=== PATIENT | male | born 1940 | race Caucasian/White ===

== ENCOUNTER 2019-06-30 11:54 | Inpatient (IN) | payer OTHER ==
[~2019-06-30] VITALS: Ht 165.1 cm; Wt 74.8 kg
[2019-06-30 12:02] VITALS: Ht 165.1 cm; Wt 74.8 kg
--- NOTE | 2019-06-30 12:13 | NUR ---
PT TO [facility].
--- NOTE | 2019-06-30 12:39 | NUR ---
LAB AT BEDSIDE FOR BLOOD DRAW
[2019-06-30 12:51] LABS: BASOPHIL % 0.5 % (0-2); PLATELET COUNT 258 x10^3mcL (130-400); RED CELL DISTRIBUTION WIDTH 16.7 % (11.5-14.5)
--- NOTE | 2019-06-30 12:51 | NUR ---
PT BIB FAMILY C/C VEGETABLE TESTER ATE RAT POISON PER DTR HE THOUGHT IT WAS CHOCOLATE PT DENIES SYMPTOMS SAW BY DR ULLOA
[2019-06-30 13:36] LABS: CARBON DIOXIDE 30.2 mmol/L (21-32); CHLORIDE SERUM 103 mmol/L (98-107); CREATININE SERUM 0.7 mg/dL (0.7-1.3); GLUCOSE SERUM 316 mg/dL (74-106); POTASSIUM SERUM 4.6 mmol/L (3.5-5.1); SODIUM SERUM 140 mmol/L (136-145)
[2019-06-30 13:40] LABS: ALBUMIN 3.6 g/dL (3.4-5.0); ALKALINE PHOSPHATASE 104 U/L (46-116); ALT/SGPT 24 U/L (16-63); AST/SGOT 14 U/L (15-37); BILIRUBIN TOTAL 0.5 mg/dL (0.20-1.00); TOTAL PROTEIN, SERUM 7.4 g/dL (6.4-8.2)
--- NOTE | 2019-06-30 14:10 | NUR ---
PT DENIES PAIN OR DISCOMFORT FAMILY AT BEDSIDE
[2019-06-30 15:04] LABS: microscopic required? NO
[2019-06-30 15:18] LABS: UA SPECIFIC GRAVITY 1.015 (1.005-1.035); urine erythrocyte NEGATIVE (NEGATIVE)
--- NOTE | 2019-06-30 15:18 | NUR ---
Samuel ULLOA AT BEDSIDE TO GO OVER PLAN OF CARE
--- NOTE | 2019-06-30 15:25 | NUR ---
PLEASE ENTER FULL NAMES OF MANUFACTURING FINANCE MANAGER/RN Patient data collected by (MANUFACTURING FINANCE MANAGER): Davida NICOLE Assessment reviewed and completed by (RN): KATINA RN
--- NOTE | 2019-06-30 16:33 | NUR ---
PT WATCHING TV NO DISCOMFORT OBSERVED
--- NOTE | 2019-06-30 17:17 | NUR ---
PT DENIES DISCOMFORT
--- NOTE | 2019-06-30 18:00 | NUR ---
PT ADMIT TO TELE ROOM 253A GAVE REPORT TO MIRNA
[2019-06-30 18:05] LABS: PHOSPHOROUS 2.9 mg/dL (2.5-4.9)
[2019-06-30 18:08] LABS: CHOLESTEROL/HDL RATIO 4.5
--- NOTE | 2019-06-30 18:39 | NUR ---
ARRIVED FROM ED AT 1826. AAO TIMES 4. [place] SPEAKING ONLY. TELE # 1 SR. VS'S STABLE. COOPERATIVE.
[2019-06-30] MEDS ORDERED: FORTAMET500 M1 PO (18:41)
[2019-06-30] MEDS ORDERED: ZESTRIL5 MG PO (18:41)
[2019-06-30 19:15] VITALS: BP 118/53
--- NOTE | 2019-06-30 19:30 | NUR ---
RECEIVED PT FROM ER, PT ADMIT FOR RAT POISONING. PT IS A/O X4, VERBAL RESPONSIVE. LUNG SOUND CLEAR BILATERAL, NO COUGH, NO SOB. PT IS ON TELE 1. SR WITH PAC, DENY ANY CHEST PAIN OR DISCOMFORT. BOWEL SOUND PRESENT ALL 4 QUADRANTS, NO DISTENTION, NO TENDER. PT ACCIDENTLY ATE RAT POISON ACCORDING TO DAUGHTER STATEMENT. PT DIDN'T HAVE ANY S/S. DENY N/V. DENY ANY HEADACHE. OR ALOC. IV AT LEFT AC, NO LEAKING, NO INFILTRAITON. ALL ADLS ASSIST, ALL NEED MET, CALL LIGHT IN REACH, WILL CONTINUE TO MONITOR.
[2019-06-30 19:35] LABS: AMPHETAMINE QUAL UR NONE DETECTED (See below)
[2019-06-30 20:40] VITALS: BP 128/61
[2019-06-30 22:28] LABS: BILIRUBIN DIRECT 0.1 mg/dL (0.0-0.2); BILIRUBIN TOTAL 0.53 mg/dL (0.20-1.00); TOTAL PROTEIN, SERUM 6.2 g/dL (6.4-8.2)
[2019-07-01 04:56] VITALS: BP 113/59
--- NOTE | 2019-07-01 05:09 | NUR ---
PT IS AWAKE, VERBAL RESPONSIVE. DENY ANY RESPIRATORY DISTRESS, DENY ANY PAIN OR DISCOMFORT. IV AT LEFT AC, NO LEAKING, NO INFILTRATION. ALL ADLS ASSIST, ALL NEED MET, CALL LIGHT IN REACH, WILL CONTINUE TO MONITOR.
[2019-07-01 06:31] LABS: BASOPHIL % 0.6 % (0-2); PLATELET COUNT 205 x10^3mcL (130-400)
[2019-07-01 06:54] LABS: RED CELL DISTRIBUTION WIDTH 16.6 % (11.5-14.5)
--- NOTE | 2019-07-01 07:10 | NUR ---
REC'D PT FROM DAY NURSE. PT RESTING IN BED. AAOX4, SPEECH CLEAR, FOLLOWS COMMANDS. TELE 1. DENIES CP, DIZZINESS, OR PALPITATIONS. DENIES RESP DISTRESS OR SOB. BREATHING EVEN/UNLABORED ON RA. ABD SOFT/ROUND. DENIES ABD PAIN, TENDERNESS, OR N/V. VOIDING FREELY USING URINAL. GEN WEAKNESS. AMB WITH WALKER (AT BEDSIDE). BLE DARK DISCOLORATION. NO OPEN WOUNDS OR LESIONS. IV TO LAC FLUSHED AND PATENT, SITE WNL. CALL LIGHT WITHIN REACH, BED AT LOWEST POSITION. WILL CONTINUE TO MONITOR.
[2019-07-01 07:20] LABS: CALCIUM 8.8 mg/dL (8.5-10.1); CARBON DIOXIDE 30.2 mmol/L (21-32); CHLORIDE SERUM 108 mmol/L (98-107); CREATININE SERUM 0.7 mg/dL (0.7-1.3); GLUCOSE SERUM 135 mg/dL (74-106); POTASSIUM SERUM 3.8 mmol/L (3.5-5.1); SODIUM SERUM 144 mmol/L (136-145)
[2019-07-01 07:31] LABS: ALKALINE PHOSPHATASE 83 U/L (46-116); ALT/SGPT 19 U/L (16-63); AST/SGOT 14 U/L (15-37); BILIRUBIN DIRECT 0.11 mg/dL (0.0-0.2); BILIRUBIN TOTAL 0.54 mg/dL (0.20-1.00); MAGNESIUM 1.8 mg/dL (1.8-2.4); PHOSPHOROUS 4.1 mg/dL (2.5-4.9)
[2019-07-01 07:35] LABS: ALBUMIN 2.9 g/dL (3.4-5.0); TOTAL PROTEIN, SERUM 5.9 g/dL (6.4-8.2)
[2019-07-01 09:04] VITALS: BP 137/64
--- NOTE | 2019-07-01 09:13 | NUR ---
IV TO LAC LEAKING. USED [employer]YRUP BLENDER PHONE FOR WOLOF/AMHARIC TRANSLATIONS. PT DID NOT WANT NEW IV ACCESS D/T NO FLUIDS ORDERED. INFORMED PT OF RIGHT TO REFUSE BUT IV ACCESS IS REQUIRED IN EMERGENT SITUATIONS TO ADMINISTER MEDICATIONS. PT VERBALIZED UNDERSTANDING BUT STILL DID NOT WANT THE IV D/T ANTICIPATION TO D/C HOME TODAY. ENCOURAGED TO DRINK WATER. PT'S DAUGHTER, OWEN, WALKED INTO THE ROOM AND AWARE. DR. SEE MADE AWARE PT REFUSING IV ACCESS VIA [employer].
--- NOTE | 2019-07-01 12:08 | NUR ---
REC'D CALL FROM POISON CONTROL, AMID. UPDATE GIVEN. RECOMMENDED REPEAT INR SINCE LAST INR HAS BEEN >[address] MAYI DIANE.
[2019-07-01 12:09] VITALS: BP 115/68
--- NOTE | 2019-07-01 12:13 | NUR ---
DR. JOHNSON MADE AWARE OF POISON CONTROL RECOMMENDATIONS OF REPEAT INR.
--- NOTE | 2019-07-01 13:08 | NUR ---
sitting on bed, having lunch. awake and alert, breathing even and unlabored on room air. denies having pain. walket at bedside. oriented to name, place, time and situation. call light within easy reach.
--- NOTE | 2019-07-01 13:11 | NUR ---
sinus rhythm with pacs, hr 80/min.
[2019-07-01] MEDS ORDERED: LANTI SQ (15:54)
--- NOTE | 2019-07-01 16:08 | NUR ---
NOTED ORDER FOR DISCHARGE. INFORMED DR. SEE THAT POISON CONTROL HAD RECOMMENDED INR. NEW ORDER FOR STAT INR NOTED.
[2019-07-01 16:30] VITALS: BP 131/59
[2019-07-01 17:00] LABS: ALBUMIN 3.5 g/dL (3.4-5.0); BILIRUBIN DIRECT 0.15 mg/dL (0.0-0.2); BILIRUBIN TOTAL 0.6 mg/dL (0.20-1.00)
--- NOTE | 2019-07-01 17:06 | NUR ---
INR IS 0.9. PT OK FOR DISCHARGE.
--- NOTE | 2019-07-01 17:17 | NUR ---
awake and alert, breathing even and unlabored on room air. daughter in room. discharge instructions provided to patient and daughter luis antonio simmons. explained prescription for lantus has been electronically sent to [facility]. pt and pt's daughter verbalized pt has been taking lantus at home already. reinforced need to check blood sugar prior to giving lantus. verbalized understanding. pt has no iv, pt stated was removed earlier today by day shift nurse. pt to go home by private auto. telebox returned to monitor station.
== END 2019-07-01 17:26 | disposition home or self-care (01) | DRG 918 ==
LOC: ED 11:54 → DU 17:24
PROVIDERS: Emergency Medicine; ADMIT Internal Medicine
DX: T60.4X1A Toxic effect of rodenticides, accidental (unintentional), initial encounter (principal); E11.65 Type 2 diabetes mellitus with hyperglycemia; E78.5 Hyperlipidemia, unspecified; I10 Essential (primary) hypertension; F17.210 Nicotine dependence, cigarettes, uncomplicated; Y92.018 Other place in single-family (private) house as the place of occurrence of the external cause; Z68.27 Body mass index [BMI] 27.0-27.9, adult; Z79.84 Long term (current) use of oral hypoglycemic drugs; Y92.009 Unspecified place in unspecified non-institutional (private) residence as the place of occurrence of the external cause
CPT/HCPCS: 36600; 82962; G0378; G0480; J1815; J7030; Q0092